=== PATIENT | female | born 1995 | race African-American/Black ===

== ENCOUNTER 2019-10-22 13:45 | Emergency (ER) | payer SELFPAY ==
[~2019-10-22] VITALS: Ht 157.5 cm; Wt 45.4 kg
[2019-10-22 14:04] VITALS: BP 117/71
[2019-10-22 14:14] LABS: BILIRUBIN,URINE NEGATIVE (NEG); CLARITY,URINE CLEAR; COLOR,URINE YELLOW; NITRITE,URINE POSITIVE (NEG); PROTEIN,URINE NEGATIVE (NEG-TRACE); UROBILINOGEN,URINE 0.2 mg/dL (0.2 mg/dL)
[2019-10-22 14:20] LABS: SQUAMOUS EPITHELIAL CELL,UR MANY /LPF
[2019-10-22 14:21] LABS: BACTERIA,URINE MANY /HPF (0-FEW); WBC,URINE >40 /HPF (0-4)
[2019-10-22 14:23] LABS: RBC,URINE OCC /HPF (0-2)
[2019-10-22] MEDS ORDERED: FLUCONAZOLE 100 MG TABLET. PO ONE (14:30)
--- NOTE | 2019-10-22 14:30 | PHYS DOC ---
Past Medical History Past Medical History: No Pertinent History (GARFIELD MAYER APRN) Smoking Status: Current Every Day Smoker Alcohol Use: Occasionally Social History Narrative: DAILY MARIJUANA USE (GARFEILD MAYER APRN) General Adult EDM: Chief Complaint: PAIN ON URINATION HPI: HPI: Patient is a 24 year old Female who presents with mendez vaginal discharge, fishy odor, foul odor to urine, and white vaginal discharge x 1-1/2 weeks. Patient is also complaining of urinary frequency and urgency but is denying dysuria for the last 1-1/2 weeks. She denies concerns for sexually transmitted diseases and does not want to be prophylactically treated at this time. Patient denies abdominal pain, back pain, nausea, vomiting, diarrhea, chest pain, shortness of breath, fever, cough, headache, dizziness. Patient is denying any pain today. Patient has no medical history and does not take any medications at home. (GARFIELD MAYER APRN) Review of Systems: Review of Systems: Constitutional: Denies fever or chills. [] Eyes: Denies change in visual acuity. [] HENT: Denies nasal congestion or sore throat. [] Respiratory: Denies cough or shortness of breath. [] Cardiovascular: Denies chest pain or edema. [] GI: Denies abdominal pain, nausea, vomiting, bloody stools or diarrhea. [] : dysuria and vaginal discharge. [] Musculoskeletal: Denies back pain or joint pain. [] Integument: Denies rash. [] Neurologic: Denies headache, focal weakness or sensory changes. [] Endocrine: Denies polyuria or polydipsia. [] Lymphatic: Denies swollen glands. [] Psychiatric: Denies depression or anxiety. [] (GARFIELD MAYER APRN) Heart Score: Risk Factors: Risk Factors: DM, Current or recent (<one month) smoker, HTN, HLP, family history of CAD, obesity. Risk Scores: Score 0 - 3: 2.5% MACE over next 6 weeks - Discharge Home Score 4 - 6: 20.3% MACE over next 6 weeks - Admit for Clinical Observation Score 7 - 10: 72.7% MACE over next 6 weeks - Early Invasive Strategies (GARFIELD MAYER APRN) Allergies: Allergies: Allergies Coded Allergies Type Severity Reaction Last Updated Verified Penicillins Allergy Intermediate rash 10/22/19 Yes (CHIOMA MAYERCong Montoya APRN) Physical Exam: PE: Constitutional: Well developed, well nourished, no acute distress, non-toxic appearance. [] HENT: Normocephalic, atraumatic, bilateral external ears normal, oropharynx moist, no oral exudates, nose normal. [] Eyes: PERRLA, EOMI, conjunctiva normal, no discharge. [] Neck: Normal range of motion, no tenderness, supple, no stridor. [] Cardiovascular:Heart rate regular rhythm, no murmur [] Lungs & Thorax: Bilateral breath sounds clear to auscultation [] Abdomen: Bowel sounds normal, soft, no tenderness, no masses, no pulsatile masses. [] Skin: Warm, dry, no erythema, no rash. [] Back: No tenderness, no CVA tenderness. [] Extremities: No tenderness, no cyanosis, no clubbing, ROM intact, no edema. [] Neurologic: Alert and oriented X 3, normal motor function, normal sensory function, no focal deficits noted. [] Psychologic: Affect normal, judgement normal, mood normal. Normal physical exam [] (GARFIELD MAYER APRN) Current Patient Data: Labs: Laboratory Tests Test 10/22/19 14:03 10/22/19 14:08 Urine Collection Type Unknown Urine Color Yellow Urine Clarity Clear Urine pH 6.0 (<5.0-8.0) Urine Specific [place] 1.020 (1.000-1.030) Urine Protein Negative mg/dL (NEG-TRACE) Urine Glucose (UA) Negative mg/dL (NEG) Urine Ketones (Stick) Negative mg/dL (NEG) Urine Blood Negative (NEG) Urine Nitrite Positive (NEG) Urine Bilirubin Negative (NEG) Urine Urobilinogen Dipstick 0.2 mg/dL (0.2 mg/dL) Urine Leukocyte Esterase Large (NEG) Urine RBC Occ /HPF (0-2) Urine WBC >40 /HPF (0-4) Urine Squamous Epithelial Cells Many /LPF Urine Bacteria Many /HPF (0-FEW) Urine Mucus Marked /LPF POC Urine HCG, Qualitative Hcg negative (Negative) Vital Signs: Vital Signs Date Time Temp Pulse Resp B/P (MAP) Pulse Ox O2 Delivery O2 Flow Rate FiO2 10/22/19 14:04 98.6 82 16 117/71 (86) 97 Room Air 98.6 (GARFIELD MAYER APRN) EKG: EKG: [] (GARFIELD MAYER APRN) Radiology/Procedures: Radiology/Procedures: [] (GARFIELD MAYER APRN) Course & Med Decision Making: Course & Med Decision Making Pertinent Labs and Imaging studies reviewed. (See chart for details) Abdomen is soft and nontender. Afebrile. Vital signs within normal limits. Alert and oriented. Ambulatory with steady gait. Speaks in full clear sentences. Patient states she has no concerns for any sexually transmitted diseases and wants to wait the 48 hours to see if anything comes back positive before she is treated. Pelvic exam is done. A wet prep and chlamydia and gonorrhea sent to the lab. Patient is treated with Diflucan for yeast. Patient does have a urinary tract infection. She also has bacterial vaginosis. She can follow-up with a electric arc furnace operator if needed. Pelvic Exam: Fork Repairer present Abdomen: Nontender External Genitalia: Normal Skin Speculum: Normal vaginal mucosa, Whitel cervical discharge Bimanual: No adnexal masses or tenderness, No CMT [] (GARFIELD MAYER APRN) Dragon Disclaimer: Dragon Disclaimer: This electronic medical record was generated, in whole or in part, using a voice recognition dictation system. (GARFIELD MAYER APRN) Departure Departure Impression: Primary Impression: Urinary tract infection Qualified Codes: N39.0 - Urinary tract infection, site not specified Additional Impressions: Bacterial vaginosis Vaginal yeast infection Disposition: 01 HOME, SELF-CARE Condition: STABLE Patient Instructions: Bacterial Vaginosis, Urinary Tract Infection, Yeast Infection of the Skin, [id number] Additional Instructions: Follow-up with electric arc furnace operator if needed. Take medications as prescribed and with food. Scripts Cephalexin (KEFLEX) 500 Mg Capsule 1 CAP PO BID for 7 Days, #14 CAP 0 Refills Prov: GARFIELD MAYER APRN 10/22/19 Metronidazole (METRONIDAZOLE) 500 Mg Tablet 1 TAB PO BID for 7 Days, #14 TAB 0 Refills Prov: GARFIELD MAYER APRN 10/22/19 Justicifation of Admission Dx: Justifications for Admission: Justification of Admission Dx: N/A (GARFIELD MAYER APRN) Attending Signature Attending Signature I have participated in the care of this patient and I have reviewed and agree with all pertinent clinical information above including history, exam, and recommendations. (KAREN GARCIA DO) GARFIELD MAYER APRN Oct 22, 2019 14:30 KAREN GARCIA DO Oct 22, 2019 16:39
[2019-10-22] MEDS ORDERED: CEPH-264 PO (14:53)
[2019-10-22] MEDS ORDERED: METR-34 PO (14:53)
[2019-10-24 18:09] LABS: GC PROBE Negative (Negative)
== END 2019-10-22 15:02 | disposition home or self-care (01) ==
LOC: ER 13:45
DX: N39.0 Urinary tract infection, site not specified (principal); N76.0 Acute vaginitis; B37.3 Candidiasis of vulva and vagina; F17.200 Nicotine dependence, unspecified, uncomplicated; F12.90 Cannabis use, unspecified, uncomplicated; Z88.0 Allergy status to penicillin
CPT/HCPCS: 81001; 81025; 87086; 87491; 87591; 99284; Q0111

== ENCOUNTER 2020-01-01 12:12 | Emergency (ER) | payer MEDICAID ==
[~2020-01-01] VITALS: Ht 157.5 cm; Wt 49.0 kg
[~2020-01-01 12:12] MED LIST: CEPH-264 PO; METR-34 PO
[2020-01-01] MEDS ORDERED: metroNIDAZOLE 500 MG TABLET PO ONE (13:30)
[2020-01-01] MEDS ORDERED: cefTRIAXone IM 250 MG VIAL IM ONE (13:30)
[2020-01-01] MEDS ORDERED: AZITHROMYCIN 250 MG TABLET. PO ONE (13:30)
[2020-01-01 13:33] LABS: BILIRUBIN,URINE NEGATIVE (NEG); CLARITY,URINE CLEAR; COLOR,URINE YELLOW; NITRITE,URINE NEGATIVE (NEG); PH,URINE 5.5 (<5.0-8.0); PROTEIN,URINE NEGATIVE (NEG-TRACE); UROBILINOGEN,URINE 0.2 mg/dL (0.2 mg/dL)
[2020-01-01 13:48] LABS: BACTERIA,URINE FEW /HPF (0-FEW); RBC,URINE 0 /HPF (0-2); SQUAMOUS EPITHELIAL CELL,UR MANY /LPF
--- NOTE | 2020-01-01 14:09 | PHYS DOC ---
Past Medical History Past Medical History: No Pertinent History Smoking Status: Current Every Day Smoker Alcohol Use: Occasionally General Adult EDM: Chief Complaint: SEXUALLY TRANSMITTED DISEASE HPI: HPI: Patient is a 24 year old female who presents to the ED today requesting to be tested and treated for STDs after having unprotected sex and currently having white vaginal discharge since yesterday. Review of Systems: Review of Systems: Constitutional: Denies fever or chills. [] GI: Reports vaginal discharge. Denies abdominal pain, nausea, vomiting, bloody stools or diarrhea. [] : Denies dysuria. [] Musculoskeletal: Denies back pain or joint pain. [] Integument: Denies rash. [] Neurologic: Denies headache, focal weakness or sensory changes. [] Psychiatric: Denies depression or anxiety. [] Heart Score: Risk Factors: Risk Factors: DM, Current or recent (<one month) smoker, HTN, HLP, family history of CAD, obesity. Risk Scores: Score 0 - 3: 2.5% MACE over next 6 weeks - Discharge Home Score 4 - 6: 20.3% MACE over next 6 weeks - Admit for Clinical Observation Score 7 - 10: 72.7% MACE over next 6 weeks - Early Invasive Strategies Current Medications: Current Medications Medications (Trade) Dose Ordered Sig/Matthew Start Time Stop Time Status Last Admin Dose Admin Azithromycin (Zithromax) 1,000 mg 1X ONCE 01/01/20 13:30 01/01/20 13:34 DC 01/01/20 14:03 1,000 MG Ceftriaxone Sodium (Rocephin Im) 250 mg 1X ONCE 01/01/20 13:30 01/01/20 13:34 DC 01/01/20 14:04 250 MG Metronidazole (Flagyl) 2,000 mg 1X ONCE 01/01/20 13:30 01/01/20 13:34 DC 01/01/20 14:03 2,000 MG Allergies: Allergies: Allergies Coded Allergies Type Severity Reaction Last Updated Verified Penicillins Allergy Intermediate rash 10/22/19 Yes Physical Exam: PE: Constitutional: Well developed, well nourished, no acute distress, non-toxic appearance. [] Abdomen: Bowel sounds normal, soft, no tenderness, no masses, no pulsatile masses. [] Pelvic exam External pelvic appears normal, cervix is visualized, closed, no CMT, no adnexal tenderness, trace amount of white discharge in the vaginal vault. Skin: Warm, dry, no erythema, no rash. [] Back: No tenderness, no CVA tenderness. [] Extremities: No tenderness, no cyanosis, no clubbing, ROM intact, no edema. [] Neurologic: Alert and oriented X 3, normal motor function, normal sensory function, no focal deficits noted. [] Psychologic: Affect normal, judgement normal, mood normal. [] Current Patient Data: Labs: Laboratory Tests Test 01/01/20 13:05 01/01/20 13:14 Urine Collection Type Unknown Urine Color Yellow Urine Clarity Clear Urine pH 5.5 (<5.0-8.0) Urine Specific [place] >=1.030 (1.000-1.030) Urine Protein Negative mg/dL (NEG-TRACE) Urine Glucose (UA) Negative mg/dL (NEG) Urine Ketones (Stick) Trace mg/dL (NEG) Urine Blood Negative (NEG) Urine Nitrite Negative (NEG) Urine Bilirubin Negative (NEG) Urine Urobilinogen Dipstick 0.2 mg/dL (0.2 mg/dL) Urine Leukocyte Esterase Moderate (NEG) Urine RBC 0 /HPF (0-2) Urine WBC 5-10 /HPF (0-4) Urine Squamous Epithelial Cells Many /LPF Urine Bacteria Few /HPF (0-FEW) Urine Mucus Mod /LPF POC Urine HCG, Qualitative Hcg negative (Negative) Microbiology 01/01/20 Wet Prep - Final, Complete EKG: EKG: [] Radiology/Procedures: Radiology/Procedures: [] Course & Med Decision Making: Course & Med Decision Making Pertinent Labs and Imaging studies reviewed. (See chart for details) This is a 24-year-old female patient presenting to the ED today concerned about STDs and would like to be tested and treated. Negative urine hCG, positive for UTI, positive for BV. Treated for STDs in the ED. Instructed to follow-up with the PCP in 1 week or the health department. STD education provided Juice Disclaimer: Juice Disclaimer: This electronic medical record was generated, in whole or in part, using a voice recognition dictation system. Departure Departure Impression: Primary Impression: Bacterial vaginosis Additional Impressions: Vaginal yeast infection Concern about STD in female without diagnosis Disposition: 01 HOME, SELF-CARE Condition: STABLE Referrals: NO PCP (PCP) Follow-up with the health department or your own doctor in 1 to 2 weeks as needed Patient Instructions: Sexually Transmitted Disease, Urinary Tract Infection Additional Instructions: You were treated for sexually transmitted diseases. Use protection at all times. Let your partners know you were treated and asked them to seek treatment too. Complete the rest of the prescribed antibiotics. Scripts Fluconazole (DIFLUCAN) 150 Mg Tablet 1 TAB PO ONCE, #1 TAB Take in 7 days Prov: JANAE HOGAN APRN 01/01/20 Metronidazole (FLAGYL) 500 Mg Tablet 1 TAB PO BID, #10 TAB Prov: JANAE HOGAN APRN 01/01/20 Sulfamethoxazole/Trimethoprim (BACTRIM DS TABLET) 1 Each Tablet 1 TAB PO BID, #6 TAB 0 Refills Prov: JANAE HOGAN APRN 01/01/20 Justicifation of Admission Dx: Justifications for Admission: Justification of Admission Dx: N/A JANAE HOGAN APRN Jan 01, 2020 14:09
[2020-01-01] MEDS ORDERED: SULF1TAB24 PO (14:13)
[2020-01-01] MEDS ORDERED: METR500T PO (14:13)
[2020-01-01] MEDS ORDERED: FLUC150T PO (14:17)
[2020-01-01] MEDS ORDERED: FLUCONAZOLE 100 MG TABLET. PO ONE (14:30)
[2020-01-01 14:40] VITALS: BP 135/71
[2020-01-02 19:09] LABS: GC PROBE Negative (Negative)
== END 2020-01-01 14:40 | disposition home or self-care (01) ==
LOC: ER 12:12
DX: N76.0 Acute vaginitis (principal); B96.89 Other specified bacterial agents as the cause of diseases classified elsewhere; B37.3 Candidiasis of vulva and vagina; Z20.2 Contact with and (suspected) exposure to infections with a predominantly sexual mode of transmission; F17.200 Nicotine dependence, unspecified, uncomplicated; Z88.0 Allergy status to penicillin
CPT/HCPCS: 81001; 81025; 87491; 87591; 96372; 99284; J0696; Q0111